=== PATIENT | male | born 1955 | race Two or more races ===

== ENCOUNTER 2016-10-14 10:25 | Emergency (ER) | payer OTHER ==
[~2016-10-14] VITALS: Ht 175.3 cm; Wt 79.5 kg
[2016-10-14 10:35] VITALS: BP 168/94
[2016-10-14] MEDS ORDERED: LISINOPRIL (10:35)
[2016-10-14] MEDS ORDERED: TETANUS, DIPHTHERIA, PERTUSSIS VAC/PF 0.5ML (>7YR OLD) IM ONE (11:00)
== END 2016-10-14 12:13 | disposition home or self-care (01) ==
LOC: ER 10:25
DX: S51.812A Laceration without foreign body of left forearm, initial encounter (principal); I10 Essential (primary) hypertension; V89.2XXA Person injured in unspecified motor-vehicle accident, traffic, initial encounter; Y93.89 Activity, other specified; Y99.8 Other external cause status; Y92.410 Unspecified street and highway as the place of occurrence of the external cause
CPT/HCPCS: 12001; 73090; 90471; 90715; 99284; Z7610